=== PATIENT | female | born 2000 | race Caucasian/White ===

== ENCOUNTER 2018-10-17 00:40 | Emergency (ER) | payer SELFPAY ==
[~2018-10-17] VITALS: Ht 170.2 cm; Wt 62.8 kg
[2018-10-17 00:49] VITALS: BP 128/77
--- NOTE | 2018-10-17 00:55 | NUR ---
PT TAKEN TO BED 2
--- NOTE | 2018-10-17 00:59 | NUR ---
Pt presents to ED with complaints of vaginal bleeding and lower abdominal cramping x1 week , worsening today. Patient reports being approximately 10 weeks from [facility] confirmed via urine. No US performed. Pt is crying and appears anxious. Patient c/o 10/10 cramping pain primarily to LLQ. VSS. G-1 P-0 A-0. VSS. NAD noted. Lab at bedside for blood draw.
--- NOTE | 2018-10-17 01:01 | NUR ---
Dr. Carcamo evaluating patient at bedside.
[2018-10-17 01:11] LABS: BASOPHILS # (AUTO) 0.2 K/uL (0.00-0.22); BASOPHILS % (AUTO) 1.9 % (0.0-2.0); EOSINOPHILS # (AUTO) 0.1 K/uL (0-0.4); EOSINOPHILS % (AUTO) 0.9 % (0.0-4.0); HEMATOCRIT 37.7 % (36-48); LYMPHOCYTES # (AUTO) 1.9 K/uL (2.5-16.5); LYMPHOCYTES % (AUTO) 16.7 % (20.5-51.1); MEAN CORPUSCULAR HEMOGLOBIN 24 pg (27-31); MEAN CORPUSCULAR HGB CONC 32 g/dL (33-37); MEAN CORPUSCULAR VOLUME 76.7 fL (80-94); MONOCYTES # (AUTO) 0.9 K/uL (0.8-1.0); MONOCYTES % (AUTO) 7.7 % (1.7-9.3); NEUTROPHILS # (AUTO) 8.2 K/uL (1.8-7.7); NEUTROPHILS % (AUTO) 72.8 % (42.2-75.2); PLATELET COUNT (AUTO) 209 K/uL (140-450); RED BLOOD CELL COUNT(AUTO) 4.92 MIL/uL (4.20-5.40); RED CELL DISTRIBUTION WIDTH 17.4 % (11.6-13.7); WHITE BLOOD COUNT (AUTO) 11.2 K/uL (4.5-11.0)
[2018-10-17] MEDS ORDERED: ACETAMINOPHEN EXTRA STRENGTH 500 MG TAB PO ONE (01:20)
[2018-10-17] MEDS ORDERED: ONDANSETRON 4 MG/2 ML VIAL IVP ONE (01:20)
[2018-10-17] MEDS ORDERED: NACL 0.9% 1,000 ML IV ONE (01:20)
[2018-10-17 01:23] LABS: APPEARANCE,URINE SL CLOUDY (CLEAR); BILIRUBIN,URINE NEGATIVE (NEGATIVE); BLOOD, URINE 3+ (NEGATIVE); COLOR,URINE YELLOW (YELLOW); LEUKOCYTE ESTERASE ,URINE NEGATIVE (NEGATIVE); NITRITE, URINE NEGATIVE (NEGATIVE); UGLUCOSE NEGATIVE (NEGATIVE)
[2018-10-17 01:24] LABS: RBC,URINE TOO NUMEROUS TO COUN /HPF (0-5); WBC,URINE 0-5 (RARE) /HPF (0-5)
[2018-10-17 01:29] LABS: ALBUMIN 4.1 g/dL (3.4-5.0); ANION GAP 10.2 (8-16); CARBON DIOXIDE 27.8 mmol/L (21-32); CREATININE 0.7 mg/dL (0.6-1.3); TOTAL BILIRUBIN 0.4 mg/dL (0.0-1.0)
[2018-10-17] MEDS ORDERED: POTASSIUM CHLORIDE 10 MEQ TABER PO ONE (01:40)
--- NOTE | 2018-10-17 01:45 | NUR ---
PT TO US VIA WHEELCHAIR BY TECH.
--- NOTE | 2018-10-17 02:33 | NUR ---
Nando aquino in [facility] - 10/17/18 at 0235 by [facility] AT BEDSIDE.
--- NOTE | 2018-10-17 03:45 | NUR ---
RHOGAM: 2 MLS TO LEFT GLUTIUS SHANNAN. BANDAGE APPLIED. PT TOLERATED WELL. LOT# [id number] EXP. DATE: 08/25/19
[2018-10-17 04:15] VITALS: BP 115/62
== END 2018-10-17 04:02 | disposition home or self-care (01) ==
LOC: MED 00:40
DX: O03.9 Complete or unspecified spontaneous abortion without complication (principal); Z88.0 Allergy status to penicillin
CPT/HCPCS: 36415; 76817; 80053; 81001; 81025; 84702; 85025; 86886; 86900; 86901; 96361; 96374; 99284; J2405; J2790; J7030

== ENCOUNTER 2024-03-08 01:19 | Emergency (ER) | payer SELFPAY ==
[~2024-03-08] VITALS: Ht 167.6 cm; Wt 68.0 kg
[2024-03-08 01:34] VITALS: BP 140/82; PULSE 91; RESP 16; TEMP 96.7; O2SAT 97
[2024-03-08] MEDS ORDERED: BACI-418 TP (02:44)
[2024-03-08] MEDS ORDERED: NAPR-337 PO (03:16)
[2024-03-08] MEDS: LIDOCAINE/EPI 1% 1:100000 20 ML VIAL INJ ONE (03:22)
[2024-03-08] MEDS: BACITRACIN OINT 500 UNITS/GM PKT TP ONE (03:23)
== END 2024-03-08 03:27 | disposition home or self-care (01) ==
LOC: MED 01:19
DX: S61.411A Laceration without foreign body of right hand, initial encounter (principal); Z79.899 Other long term (current) drug therapy; Z88.0 Allergy status to penicillin; W25.XXXA Contact with sharp glass, initial encounter; Y93.89 Activity, other specified; Y92.89 Other specified places as the place of occurrence of the external cause; Y99.8 Other external cause status
CPT/HCPCS: 12001; 99282